=== PATIENT | male | born 1990 | race Caucasian/White ===

== ENCOUNTER 2017-12-07 04:51 | Day surgery (SDC) | payer BC ==
[2017-11-23 13:22] VITALS: BMI 27.3
[2017-12-07] MEDS ORDERED: SUCCINYLCHOLINE CHLORIDE 200 MG/10 ML VIAL ONE (07:27)
[2017-12-07] MEDS ORDERED: PROPOFOL 20 ML ONE ×2 (07:27)
[2017-12-07] MEDS ORDERED: MIDAZOLAM HCL 2 MG/2 ML SINGLE DOSE VIAL ONE (07:27)
[2017-12-07] MEDS ORDERED: LIDOCAINE HCL/PF 2% SDV 5ML VIAL ONE (07:30)
[2017-12-07] MEDS ORDERED: DEXAMETHASONE SOD PHOSPHATE 4 MG/1 ML VIAL ONE (07:30)
[2017-12-07] MEDS ORDERED: CLINDAMYCIN PHOSPHATE 600 MG/4 ML VIAL ONE (08:36)
[2017-12-07] MEDS ORDERED: BUPIVACAINE HCL/PF (5 MG/ML) 30 ML VIAL IJ ONE (08:40)
--- NOTE | 2017-12-07 09:08 | OP ---
Operative Note - Note: Operative Date: 12/07/17 Pre-Operative Diagnosis: left knee pain, MM tear Operation: left knee arthroscopy, partial medial meniscectomy, debridement chondroplasty Post-Operative Diagnosis: Same as Pre-op Surgeon: Sathya Hill Anesthesiologist/RECONCILIATION MACHINE OPERATOR: Tess Short Anesthesia: General, Local Specimens Removed: shavings Estimated Blood Loss (mls): 0 Blood Volume Replaced (mls): 0 Fluid Volume Replaced (mls): 500 Operative Report Dictated: Yes
--- NOTE | 2017-12-07 09:10 | HP ---
Satellite [facility] - Chief Complaint Chief Complaint: left knee pain History of Present Illness: left knee medial meniscus tear History Source: Patient Limitations to Obtaining History: No Limitations - Past Medical History Allergies/Adverse Reactions: Allergies Allergy/AdvReac Type Severity Reaction Status Date / Time Penicillins AdvReac Intermediate Rash Verified 12/07/17 07:11 - Current Medications Current Medications: Home Medications Medication Instructions Recorded NK [No Known Home Medication] 11/23/17 Satellite Physical Exam - Physical Examination Vital Signs: Vital Signs Period Temp Pulse Resp BP Sys/Bassett Pulse Ox Last 24 Hr 98.2 F 70 20 123/71 97 General Appearance: Well Nourished ENT: Clear Lung: Clear to auscultation Heart: Regular rate & rhythm Breasts: Soft Abdomen: Soft Extremities: No edema Satellite Impression/Plan - Impression/Plan Impression: left knee medial meniscus tear, OA Operative Procedure: left knee arthroscopy, partial medial meniscectomy, debridement chondroplasty Date to be Performed: 12/07/17
[2017-12-07] MEDS ORDERED: ONDANSETRON 4 MG/2 ML VIAL IVPUSH PRN (09:26)
[2017-12-07] MEDS ORDERED: KETOROLAC TROMETHAMINE 30 MG/1 ML VIAL IVPUSH ONE (09:27)
[2017-12-07] MEDS ORDERED: LACTATED RINGERS SOLUTION 1,000 ML IV SCH (09:30)
--- NOTE | 2017-12-07 11:56 | OP ---
DATE OF OPERATION: 12/07/2017 PREOPERATIVE DIAGNOSES: Left knee pain, medial meniscus tear, and osteoarthritis. POSTOPERATIVE DIAGNOSES: Left knee pain, medial meniscus tear, and osteoarthritis. PROCEDURES: Left knee arthroscopy, partial medial meniscectomy, and debridement chondroplasty. SURGEON: Sathya Stewart MD ASSISTANTS: None. ANESTHESIOLOGIST: , TIME CLOCK MECHANIC. ANESTHESIA: LMA anesthesia; intra-articular injection of 20 mL of 0.5% Marcaine. DRAINS: None. COMPLICATIONS: None. SPECIMENS: Arthroscopic shavings. BLOOD LOSS: None. BLOOD GIVEN: None. FLUID REPLACEMENT: 500 mL. INDICATION FOR PROCEDURE: This patient is a 27-year-old male with a preoperative diagnosis of recurrent left knee pain. He is status post previous medial meniscectomy. He has acute on chronic pain and his preoperative diagnosis of a recurrent medial meniscus tear and mild osteoarthritis. After understanding the potential risks, complications, alternatives, and benefits of surgical versus nonsurgical treatment, the patient elected to undergo this procedure. Specifically, he understands he will not get complete relief of his symptoms. If he continues to have pain, it is because of his osteoarthritis. PROCEDURE: The patient was brought to the operating room. Peripheral IV placed. IV sedation given. Clindamycin of 600 mg was given. LMA anesthesia was induced. Ample Webril was placed around the left thigh. He was placed into the C-clamp leg reece with a Styrofoam ring. The left lower extremity was prepped and draped in sterile fashion, elevated, exsanguinated with an Esmarch bandage, and tourniquet inflated to 275 mm of mercury. A superior medial outflow portal was established. A lateral portal was established. Under direct visualization using a spinal needle, a medial portal was established and a diagnostic arthroscopy was performed. In the medial compartment, the patient was seen to have a degenerative-type tear with a radial component of the body of the medial meniscus. This was debrided with a curved shaver. Photographs were taken before and after. Patient did have grade 1 to grade 2 changes of the medial tibial plateau, grade 1 changes of the medial femoral condyle. These were gently debrided, as well. Some small pieces of cartilaginous debris were removed. The intercondylar notch looked good, although the ACL looked a little degenerative. I would say that there were small partial tears of approximately 5% of the total diameter of the ACL. Next, our attention turned to the lateral compartment. This looked good. The patient had grade 1 change of the lateral tibial plateau, but otherwise looked quite good. The patellofemoral joint did show some areas of grade 2 almost grade 3 of the femoral trochlea. There was synovitis. I debrided both the synovitis and did a gentle debridement chondroplasty of the femoral trochlear chondromalacia. The area was copiously irrigated and washed out. Again, I looked at all the different structures. There was no other pathology. All instrumentation and debris was removed. The arthroscopy portals were closed with 3-0 nylon sutures. Next, 20 mL of 0.5% Marcaine was introduced into the joint. The area was then washed and dried, covered with Xeroform gauze, 4 x 4, Webril and an Arthur bandage. The tourniquet was taken down after a total tourniquet time of 20 minutes. There were no complications during the case. The patient tolerated the procedure quite well and was brought to the ambulatory recovery room in stable condition. SATHYA STEWART M.D. [id number]
[2017-12-07 14:19] VITALS: BP 120/68; PULSE 58; TEMP 97.6
--- NOTE | 2017-12-08 16:23 | PATH ---
Surgical Pathology Report Patient Name: MANAN HANKINS Med. Rec. #: [id number] /Age/Gender: 1990 (Age: 27) / M Account: [id number] Location: [facility] SURGICAL Taken: 12/07/2017 Received: 12/07/2017 Reported: 12/08/2017 Physicians: Sathya Hill M.D. Specimen(s) Received RIGHT KNEE SHAVINGS Clinical History Right knee tear Final Diagnosis RIGHT KNEE SHAVINGS: CARTILAGINOUS AND FIBROSYNOVIAL TISSUE WITH DEGENERATIVE CHANGE. Electronically Signed Marisa Hopson M.D. Gross Description Received in formalin labeled "right knee shavings," is a 1.5 x 1.0 x 0.3 cm aggregate of robins-yellow soft tissue fragments. Receptionist tissue submitted in one cassette. YVONNE/12/07/2017 brooks/12/07/2017
== END 2017-12-07 12:30 | disposition home or self-care (01) ==
LOC: JASU-SURG 04:51
PROVIDERS: ATTEND Orthopaedic Surgery
PROC: 0SBD4ZZ Excision of Left Knee Joint, Percutaneous Endoscopic Approach (ICD-10-PCS; principal; 2017-12-07 08:00)
DX: S83.242A Other tear of medial meniscus, current injury, left knee, initial encounter (principal); X58.XXXA Exposure to other specified factors, initial encounter; Y93.9 Activity, unspecified; Y92.9 Unspecified place or not applicable; Y99.9 Unspecified external cause status

== ENCOUNTER 2018-07-17 14:49 | Emergency (ER) | payer OTHER, BC | END 2018-07-17 16:30 | disposition home or self-care (01) | LOC: FER 14:49 ==

== ENCOUNTER 2018-08-09 05:54 | Day surgery (SDC) | payer BC ==
[2018-08-08 08:48] VITALS: BMI 25.4
[2018-08-09] MEDS ORDERED: BUPIVACAINE HCL/PF 0.5% (5MG/ML) 10 ML VIAL ONE (10:30)
--- NOTE | 2018-08-09 10:37 | HP ---
Satellite [facility] - Chief Complaint Chief Complaint: left knee pain - Past Medical History Allergies/Adverse Reactions: Allergies Allergy/AdvReac Type Severity Reaction Status Date / Time Penicillins AdvReac Intermediate Rash Verified 08/09/18 09:51 - Current Medications Current Medications: Home Medications Medication Instructions Recorded Oxycodone HCl/Acetaminophen 1 tab PO Q6H #20 tablet MDD 4 08/09/18 [Percocet 5-325 mg Tablet] Satellite Physical Exam - Physical Examination Vital Signs: Vital Signs Period Temp Pulse Resp BP Sys/Bassett Pulse Ox Last 24 Hr 98.2 F 60 16 123/71 97 General Appearance: Well Nourished, Well Developed, Alert & Oriented x3 ENT: Clear Lung: Normal air movement Heart: Regular rate & rhythm Extremities: Other (left knee- +swelling, + ttp, decr rom, + mcmurrays, MRI + mt ) Neurological: Intact, Alert, Oriented Satellite Impression/Plan - Impression/Plan Impression: left knee internal derangement Operative Procedure: left knee arthroscopy Date to be Performed: 08/09/18
[2018-08-09] MEDS ORDERED: MIDAZOLAM HCL 2 MG/2 ML SINGLE DOSE VIAL ONE ×2 (11:26)
[2018-08-09] MEDS ORDERED: PROPOFOL 20 ML ONE (11:31)
[2018-08-09] MEDS ORDERED: SUCCINYLCHOLINE CHLORIDE 200 MG/10 ML SYRINGE ONE (11:32)
[2018-08-09] MEDS ORDERED: ceFAZolin SODIUM 1 GM VIAL IVPB ONE (11:35)
[2018-08-09] MEDS ORDERED: BUPIVACAINE HCL/PF (5 MG/ML) 30 ML VIAL IJ ONE (12:15)
--- NOTE | 2018-08-09 12:35 | OP ---
Operative Note - Note: Operative Date: 08/09/18 Pre-Operative Diagnosis: left knee lateral meniscus tear, OA Operation: left knee arthroscopy, partial lateral and medial meniscectomy, debridement chondroplasty Post-Operative Diagnosis: Same as Pre-op Surgeon: Sathya Hill Anesthesiologist/GLUING MACHINE FEEDER: Nadiya Yan MD Anesthesia: General, Local Specimens Removed: shavings Estimated Blood Loss (mls): 0 Drains, Volume Out (mls): 0 Blood Volume Replaced (mls): 0 Fluid Volume Replaced (mls): 500 Operative Report Dictated: Yes
[2018-08-09] MEDS ORDERED: PROMETHAZINE HCL 25 MG/1 ML VIAL IVPB PRN (12:42)
[2018-08-09] MEDS ORDERED: ONDANSETRON 4 MG/2 ML VIAL IVPUSH PRN (12:42)
[2018-08-09] MEDS ORDERED: oxyCODONE HCL 5 MG TABLET PO PRN (12:42)
[2018-08-09] MEDS ORDERED: LACTATED RINGERS SOLUTION 1,000 ML IV SCH (12:45)
--- NOTE | 2018-08-09 13:32 | OP ---
DATE OF OPERATION: 08/09/2018 PREOPERATIVE DIAGNOSIS: Left knee lateral meniscus tear, osteoarthritis. POSTOPERATIVE DIAGNOSIS: Left knee lateral meniscus tear, osteoarthritis, plus small medial meniscus tear. DRAINS: None. COMPLICATIONS: None. PROCEDURE: Left knee arthroscopy, partial medial and lateral meniscectomy, and debridement chondroplasty. SURGEON: Sathya Hill MD [employer] SCHO[employer] DEAN: None. ANESTHESIA: Nadiya Yan MD: LM anesthesia, local injection of 20 mL 0.5% Marcaine. BLOOD LOSS: None. BLOOD GIVEN: None. FLUID REPLACEMENT: 500 mL. This patient is a 28-year-old male with a preoperative diagnosis of recurrent left knee pain and a large lateral meniscus tear as well as osteoarthritis. After understanding the potential risks, complications, alternatives, and benefits to surgery versus nonsurgical treatment, the patient elected to undergo this procedure. The patient was brought to the operating room, peripheral IV placed, IV sedation given, LM anesthesia was induced. He was placed supine, leg reece, with ample padding throughout. The left lower extremity was prepped and draped in sterile fashion, elevated, exsanguinated with an Esmarch bandage, tourniquet inflated to 250 mmHg. A superior medial outflow portal was established. A lateral portal was established. A diagnostic arthroscopy was performed. A medial portal was established under direct visualization using a spinal needle. First of all, in the medial compartment, the patient had a small radial tear at the junction of the body and posterior horn and medial meniscus. This was debrided with a curved shaver. There was very small mild grade 1 chondromalacia of the medial tibial plateau but otherwise overall there was no osteoarthritis in the medial compartment. The intercondylar notch over the anterior cruciate ligament was a little frayed. A small debridement was performed. I put a probe behind it. It was a little bit loose. Overall it looked okay. It was intact but not great. The lateral compartment showed a very large bucket-handle tear of the posterior horn and body of the lateral meniscus. This was brought forward with a probe, photographs taken. A straight basket forceps and a curved shaver were used to remove the unstable flap. Once this as done, I probed what was left. There still were some gallegos fibers intact but a vast majority, probably 85% of the posterior horn and body of the lateral meniscus were removed. That portion of the anterior horn was debrided but most of that was left in place. The patient had large areas of grade 2/grade 3 chondromalacia of the lateral tibial plateau and areas of grade 3 chondromalacia of the lateral femoral condyle. This was debrided with a curved shaver. Once the debridement chondroplasty was completed, the patellofemoral joint was directly visualized and it actually looked quite good. There were small areas of grooving in the femoral trochlea but overall it looked quite good and nothing needed to be done. The area was copiously irrigated and washed out. All instrumentation and excess saline were removed. The arthroscopy portals were closed with 3-0 nylon sutures. Then 20 mL of 0.5% Marcaine was introduced into the joint. The area was then washed and dried, covered with Xeroform, 4 x 4, Webril, and an Arthur bandage. Tourniquet was taken down after a total tourniquet time of 25 minutes. There were no complications during the case. The patient tolerated the procedure quite well, was brought to the ambulatory recovery room in stable condition. Sherly [id number]
[2018-08-09 14:36] VITALS: BP 123/75; PULSE 60; TEMP 97.9
--- NOTE | 2018-08-11 17:05 | PATH ---
Surgical Pathology Report Patient Name: MANAN HANKINS Med. Rec. #: [id number] /Age/Gender: 1990 (Age: 28) / M Account: [id number] Location: [facility] SURGICAL Taken: 08/09/2018 Received: 08/09/2018 Reported: 08/11/2018 Physicians: Sathya Hill M.D. Specimen(s) Received LEFT KNEE SHAVINGS Clinical History Left knee tear Final Diagnosis KNEE SHAVINGS, LEFT, ARTHROSCOPY: FRAGMENTS OF DENSE FIBROCONNECTIVE TISSUE, ADIPOSE TISSUE, AND SYNOVAL TISSUE WITH EMBEDDED POLARIZING FOREIGN BODY MATERIAL WITH ASSOCIATED GIANT CELL REACTION. Comment: Suggest clinical correlation. Electronically Signed Janay Monteiro M.D. Gross Description Received in formalin, labeled "left knee shaving," is a 3.5 x 3.0 x 0.3 cm. aggregate of robins-yellow soft tissue fragments. A event sales representative portion is submitted in one cassette. /08/09/2018 located within [facility]08/09/2018
== END 2018-08-09 14:20 | disposition home or self-care (01) ==
LOC: JASU-SURG 05:54
PROVIDERS: ATTEND Orthopaedic Surgery
PROC: 0SBD4ZZ Excision of Left Knee Joint, Percutaneous Endoscopic Approach (ICD-10-PCS; 2018-08-09)
PROC: 0SBD4ZZ Excision of Left Knee Joint, Percutaneous Endoscopic Approach (ICD-10-PCS; principal; 2018-08-09 11:00)
DX: S83.282A Other tear of lateral meniscus, current injury, left knee, initial encounter (principal); M17.12 Unilateral primary osteoarthritis, left knee; S83.242A Other tear of medial meniscus, current injury, left knee, initial encounter; X58.XXXA Exposure to other specified factors, initial encounter; Y93.9 Activity, unspecified; Y92.9 Unspecified place or not applicable; Y99.9 Unspecified external cause status
CPT/HCPCS: 88304-TC; 94760

== ENCOUNTER 2019-11-13 18:15 | Emergency (ER) | payer BC ==
[2019-11-13 18:29] VITALS: BP 134/88; TEMP 98.4; BMI 25.5
--- OUTSIDE RECORDS SUMMARY | 2019-11-13 18:48 | XMS ---
:1990 Author Organization [facility] Support Name Relationship Address Phone VERI Unavailable [address] [facility] [place] [address] ANNY HANKINS [address] [place] [address] Re-disclosure Warning The records that you are about to access may contain information from federally- assisted alcohol or drug abuse programs. If such information is present, then the following federally mandated warning applies: This information has been disclosed to you from records protected by federal confidentiality rules (42 CFR part 2). The federal rules prohibit you from making any further disclosure of this information unless further disclosure is expressly permitted by the written consent of the person to whom it pertains or as otherwise permitted by 42 CFR part 2. A general authorization for the release of medical or other information is NOT sufficient for this purpose. The Federal rules restrict any use of the information to criminally investigate or prosecute any alcohol or drug abuse patient.The records that you are about to access may contain highly sensitive health information, the redisclosure of which is protected by Article 27-F of the [facility] Public Health law. If you continue you may haveaccess to information: Regarding HIV / AIDS; Provided by facilities licensed or operated by the [facility] Office of Mental Health; or Provided by the [facility] Office for People With Developmental Disabilities. If such information is present, then the following [facility] mandated warning applies: This information has been disclosed to you from confidential records which are protected by state law. State law prohibits you from making any further disclosure of this information without the specific written consent of the person to whom it pertains, or as otherwise permitted by law. Any unauthorized further disclosure in violation of state law may result in a fine or skilled nursing sentence or both. A general authorization for the release of medical or other information is NOT sufficient authorization for further disclosure. Insurance Providers Payer name Policy type Policy ID Covered Covered republican's Policy P lori / Coverage republican ID relationship to Mireles Inf ormation type mireles BC OUT OF [id number] SP [id number] [facility] SELF PAY [employer]URANCE PENDING WC/NF [id number] SP [id number] 100 ONLY Results ID Date Data Source [id number] 06/13/2019 12:00:00 AM EDT [facility] Name Value Range Interpretation Code Description Data Stephania rce(s) Supporting Document(s ) 2019-nCoV [facility] RNA XXX LUZ MARINA+probe- Imp This lab was ordered by [facility] DE JESUS and reported by [employer] Procedure
[2019-11-13 19:04] VITALS: PULSE 104
--- NOTE | 2019-11-13 19:42 | PDOC ---
Attending Attestation - Resident Resident Name: Yulissa Alvarez - ED Attending Attestation I have performed the following: I have examined & evaluated the patient, The case was reviewed & discussed with the resident, I agree w/resident's findings & plan - HPI HPI: 11/13/19 21:39 see resident hpi - Physicial Exam PE: 11/13/19 21:39 see resident exam - Medical Decision Making 11/13/19 21:39 29-year-old male with body aches and fever, rapid flu negative at an outpatient facility here for concerns of code infection and further evaluation Chest x-ray shows no obvious infiltrate Patient was tachycardic on arrival, d-dimer is within normal limits COVID testing is pending Plan for DC home with isolation precautions pending results Discharge - Discharge Information Problems reviewed: Yes Clinical Impression/Diagnosis: Bronchitis, Suspected COVID-19 virus infection, Malaise - Follow up/Referral Referrals: Kristie Lovell MD [Primary Care Provider] - - Patient Discharge Instructions - Post Discharge Activity
[2019-11-13] MEDS ORDERED: ALBUTEROL SO4 HFA INHALER IH ONE ×2 (19:46→19:55)
--- NOTE | 2019-11-13 20:14 | PDOC ---
History of Present Illness - General Chief Complaint: Cold Symptoms Stated Complaint: CHEST PAINS Time Seen by Provider: 11/13/19 19:42 History Source: Patient Exam Limitations: No Limitations - History of Present Illness Initial Comments: 11/13/19 20:14 HPI: This is a 29 y/o male with no PMH presenting to the ED due to generalized fatigue and SOB that began this afternoon while he was at work. He then left work and started having chest pain, which he described as non-radiating central pressure worse with deep breaths, worsening SOB with exertion, chills, myalgias and a headache. He took his temperature at home which he says was 103.3 and then took tylenol. When his symptoms continued, he went to urgent care to be tested for COVID and the flu. The rapid flu came back negative, COVID is pending. He was afebrile at the time. He is currently still complaining of mild SOB, improved chest pain, headache, chills, nausea, and myalgias. Denies known COVID contacts [place]. He was wearing a mask at the time. ROS: GENERAL/CONSTITUTIONAL: Yes chills, generalized weakness HEENT: No change in vision. No sore throat. CARDIOVASCULAR: Yes chest pressure, No palpitations or peripheral edema RESPIRATORY: Yes SOB and dyspnea with exertion, Denied wheezing, or hemoptysis. GASTROINTESTINAL: No abdominal pain, Yes nausea with one episode of NMNB emesis at urgent care. Denied diarrhea GENITOURINARY: No dysuria, frequency, MUSCULOSKELETAL: Yes diffuse myalgias SKIN: No rash or hives NEUROLOGIC: Yes headache No vertigo, focal weakness, loss of consciousness, or change in strength/sensation. ENDOCRINE: No increased thirst. No unexplained weight loss. HEMATOLOGIC/LYMPHATIC: No anemia, easy bleeding, or history of blood clots. PMH: Denied PSx: Denied Social Hx: Occasional etoh, occasional marijuana and vape Meds: See nurse note Allergies: See nurse note PE: GENERAL: Awake, alert, and fully oriented, in no acute distress. Patient is non- toxic in appearance. Speaking in full sentences, no increased work of breathing. HEENT: Normocephalic, atraumatic. PERRLA, EOMI NECK: Normal ROM and supple. CARDIOVASCULAR: Regular rate and rhythm, normal S1 and S2 PULMONARY: No respiratory distress. Breath sounds equal, clear to auscultation bilaterally. No wheezes, rales or rhonchi. ABDOMEN: Soft, nontender EXTREMITIES: Normal range of motion, no edema or erythema, no calf tenderness. NEUROLOGICAL: Cranial nerves II through XII grossly intact. Normal speech, normal gait SKIN: Warm, Dry, normal turgor MDM: 11/13/19 20:48 This is a 29 y/o male with no PMH presenting to the ED due to generalized fatigue and SOB that began this afternoon while he was at work. - Tachycardic on admission - Sudden onset chills, headache, body aches. - Reports a fever of 103.3 at home - Doesnt know of known covid contacts but [place] on [place] last week - Patient is non-toxic in appearance. No respiratory distress. - Saturating well on RA - Possible COVID patient vs PE Plan: - EKG, cardiac panel - d-dimer - CBC, CMP - CXR - Albuterol 11/13/19 20:57 EKG: No ST elevations T wave inversions Vent rate 92, Sinus rhythm CXR: No acute chest pathology Labs notable for: WBC 11.7 CMP wnl Dimer negative Troponin negative 11/13/19 22:30 - Patient repeat vitals P 92, 99% RA, 99% ambulating - Suspect COVID - Stable to d/c with return precautions, isolation precautions and follow-up Past History - Medical History Allergies/Adverse Reactions: Allergies Allergy/AdvReac Type Severity Reaction Status Date / Time Penicillins AdvReac Intermediate Rash Verified 08/09/18 09:51 Home Medications: Ambulatory Orders Oxycodone HCl/Acetaminophen [Percocet 5-325 mg Tablet] 1 tab PO Q6H #20 tablet MDD 4 08/09/18 Anemia: No Asthma: Yes (as a child) Cancer: No Cardiac Disorders: No CVA: No COPD: No CHF: No Dementia: No Diabetes: No GI Disorders: No Disorders: No HTN: No Hypercholesterolemia: No Liver Disease: No Seizures: No Thyroid Disease: No - Surgical History Abdominal Surgery: Yes (HIATAL HERNIA) Appendectomy: No Cardiac Surgery: No Cholecystectomy: No Lung Surgery: No Neurologic Surgery: No Orthopedic Surgery: Yes (left elbow decompression, left ACL, left knee) - Immunization History Immunization Up to Date: Yes - Psycho-Social/Smoking History Smoking History: Never smoked Have you smoked in the past 12 months: No Number of Cigarettes Smoked Daily: 0 If you are a former smoker, when did you quit?: 2018 'Breaking Loose' booklet given: 11/23/17 - Substance Abuse Hx (Audit-C & DAST Scrn) How often the patient has a drink containing alcohol: Never Score: In Men: 4 or > Positive; In Women: 3 or > Positive: 0 Screen Result (Pos requires Nsg. Audit-10AR): Negative In the last yr the pt used illegal drug/Rx for NonMed reason: No Score: Yes response is considered Positive: 0 Screen Result (Positive result requires Nsg. DAST-10): Negative *Physical Exam - Vital Signs Last Vital Signs Temp Pulse Resp BP Pulse Ox 98.4 F 104 H 20 134/88 96 11/13/19 18:24 11/13/19 18:50 11/13/19 18:24 11/13/19 18:24 11/13/19 18:50 ED Treatment Course - LABORATORY CBC & Chemistry Diagram: 11/13/19 20:59 11/13/19 20:59 - Medications Given in the ED: ED Medications Discontinued Medications Generic Name Dose Route Start Last Admin Trade Name Freq PRN Reason Stop Dose Admin Albuterol Sulfate 2 puff 11/13/19 19:46 11/13/19 20:05 Ventolin Hfa Inhaler - IH 11/13/19 19:47 2 puff ONCE ONE Administration Discharge - Discharge Information Problems reviewed: Yes Clinical Impression/Diagnosis: Bronchitis, Suspected COVID-19 virus infection, Malaise Condition: Stable Disposition: HOME - Follow up/Referral Referrals: Kristie Lovell MD [Primary Care Provider] - - Patient Discharge Instructions Patient Printed Discharge Instructions: How to Avoid a Cold or Flu, DI for Acute Bronchitis, DI for Viral Upper Respiratory Infection -- Adult, [facility]- Coronavirus Instructions, [facility] COVID-19 Isolation Protocol Additional Instructions: You were seen in the emergency department for the evaluation of your body aches and fever. You possibly have COVID-19, which is caused by SARS-COV-2. Please follow the discharge instructions listed about the coronavirus. It is important that you isolate yourself for 14 days away from others. Please have a mask on at all times. Please return to the emergency department if you ave worsening symptoms or new concerning symptoms such as shortness of breath, inability to breathe, confusion, chest pain. Please follow up with your primary medical doctor 2 weeks after discharge. Thank you. - Post Discharge Activity Work/Back to School Note: Back to Work
--- NOTE | 2019-11-13 20:18 | PDOC ---
*Physical Exam - Vital Signs Last Vital Signs Temp Pulse Resp BP Pulse Ox 98.4 F 104 H 20 134/88 96 11/13/19 18:24 11/13/19 18:50 11/13/19 18:24 11/13/19 18:24 11/13/19 18:50 ED Treatment Course - LABORATORY CBC & Chemistry Diagram: 11/13/19 20:59 11/13/19 20:59 - RADIOLOGY Radiology Studies Ordered: Category Date Time Status CXRPORT [CHEST X-RAY PORTABLE*] [RAD] Stat Radiology 11/13/19 19:38 Ordered - Medications Given in the ED: ED Medications Discontinued Medications Generic Name Dose Route Start Last Admin Trade Name Freq PRN Reason Stop Dose Admin Albuterol Sulfate 2 puff 11/13/19 19:46 11/13/19 20:05 Ventolin Hfa Inhaler - IH 11/13/19 19:47 2 puff ONCE ONE Administration Medical Decision Making - Medical Decision Making 11/13/19 22:23 92 bpm was the heart rate at the time of discharge. At rest, the patient had O2 via pulse oximetry of 99% at rest and 99% with ambulation. Patient states they feel well for discharge and will self isolate at home. Patient was given return precautions and covid-19 instructions. Discharge - Discharge Information Problems reviewed: Yes Clinical Impression/Diagnosis: Bronchitis, Suspected COVID-19 virus infection, Malaise Disposition: HOME - Admission No - Follow up/Referral Referrals: Kristie Lovell MD [Primary Care Provider] - - Patient Discharge Instructions Patient Printed Discharge Instructions: How to Avoid a Cold or Flu, DI for Acute Bronchitis, DI for Viral Upper Respiratory Infection -- Adult, [facility]- Coronavirus Instructions, [facility] COVID-19 Isolation Protocol Additional Instructions: You were seen in the emergency department for the evaluation of your body aches and fever. You possibly have COVID-19, which is caused by SARS-COV-2. Please follow the discharge instructions listed about the coronavirus. It is important that you isolate yourself for 14 days away from others. Please have a mask on at all times. Please return to the emergency department if you ave worsening symptoms or new concerning symptoms such as shortness of breath, inability to breathe, confusion, chest pain. Please follow up with your primary medical doctor 2 weeks after discharge. Thank you. - Post Discharge Activity Work/Back to School Note: Back to Work
[2019-11-13 21:15] LABS: BASO % 0.5 % (0-2.0); EOS % 0.5 % (0-4.5); HEMOGLOBIN 15.4 GM/dL (11.7-16.9); LYMPH % 8.8 % (8-40); MCH 31.5 pg (25.7-33.7); MCHC 34.3 g/dl (32.0-35.9); MEAN CELL VOLUME 91.9 fl (80-96); MEAN PLT VOLUME 6.9 fl (7.5-11.1); MONO % 8.2 % (3.8-10.2); PLATELET COUNT 239 K/MM3 (134-434); RDW 12.3 % (11.9-15.9); WHITE BLOOD COUNT 11.7 K/mm3 (4.0-10.0)
[2019-11-13 21:24] LABS: INR 1.03 (0.83-1.09); PROTHROMBIN TIME (PATIENT) 12.2 SEC (9.7-13.0)
[2019-11-13 21:46] LABS: ALBUMIN 4.4 g/dl (3.4-5.0); ALK PHOS 44 U/L (45-117); ANION GAP 7 MMOL/L (8-16); BILIRUBIN,TOTAL 0.9 mg/dL (0.2-1); BLOOD UREA NITROGEN 11.2 mg/dL (7-18); CALCIUM 9.4 mg/dL (8.5-10.1); CHLORIDE 104 mmol/L (98-107); CO2 27 mmol/L (21-32); CREATININE 0.8 mg/dL (0.55-1.3); GLUCOSE,RANDOM 89 mg/dL (74-106); POTASSIUM 4.6 mmol/L (3.5-5.1); SGOT/AST 18 U/L (15-37); SGPT/ALT 38 U/L (13-61); SODIUM 138 mmol/L (136-145); TOT PROT 7.8 g/dl (6.4-8.2)
--- NOTE | 2019-11-14 08:47 | EKG ---
Test Reason : Blood Pressure : / mmHG Vent. Rate : 091 BPM Atrial Rate : 091 BPM P-R Int : 160 ms QRS Dur : 094 ms QT Int : 362 ms P-R-T Axes : 035 104 068 degrees QTc Int : 445 ms NORMAL SINUS RHYTHM RIGHTWARD AXIS BORDERLINE ECG NO PREVIOUS ECGS AVAILABLE Confirmed by Jason Jesus MD ([id number]) on 11/14/2019 8:46:38 AM Referred By: Confirmed By:Jason Jesus MD
--- NOTE | 2019-11-15 13:25 | EKG ---
Test Reason : Blood Pressure : / mmHG Vent. Rate : 097 BPM Atrial Rate : 097 BPM P-R Int : 150 ms QRS Dur : 094 ms QT Int : 346 ms P-R-T Axes : 036 102 066 degrees QTc Int : 439 ms NORMAL SINUS RHYTHM RIGHTWARD AXIS BORDERLINE ECG WHEN COMPARED WITH ECG OF 13-NOV-2019 20:24, NO SIGNIFICANT CHANGE WAS FOUND Confirmed by SARAH LYNN MD ([id number]) on 11/15/2019 1:24:50 PM Referred By: Confirmed By:SARAH LYNN MD
== END 2019-11-13 22:41 | disposition home or self-care (01) ==
LOC: JER 18:15
DX: J20.9 Acute bronchitis, unspecified (principal)
CPT/HCPCS: 36415; 71045-TC-FY; 80053; 82550; 84484; 85025; 85379; 85610; 93005; 93010; 99285-25

== ENCOUNTER 2021-02-22 09:40 | Emergency (ER) | payer BC ==
[2021-02-22 09:47] VITALS: BP 135/90; PULSE 67; TEMP 98; BMI 24.3
[2021-02-22] MEDS ORDERED: SODIUM CHLORIDE 0.9% 500 ML INFUS.BAG IV ONE (10:44)
[2021-02-22] MEDS ORDERED: KETOROLAC TROMETHAMINE 15 MG/ML VIAL IVPUSH ONE (10:44)
[2021-02-22] MEDS ORDERED: KETOROLAC TROMETHAMINE 15 MG/ML VIAL ONE (10:47)
[2021-02-22 11:44] LABS: PH,URINE 7.5 (5.0-8.0); URINE APPEARANCE CLEAR; URINE BILIRUBIN NEGATIVE (NEGATIVE); URINE COLOR YELLOW; URINE GLUCOSE (UA) NEGATIVE (NEGATIVE); URINE KETONE NEGATIVE (NEGATIVE); URINE LEUK ESTERASE NEGATIVE (NEGATIVE); URINE NITRITE NEGATIVE (NEGATIVE); URINE PROTEIN NEGATIVE (NEGATIVE)
[2021-02-22 12:12] LABS: BASO % 1.1 % (0-2.0); EOS % 2.3 % (0-4.5); HEMATOCRIT 41.7 % (35.4-49); HEMOGLOBIN 14.2 GM/dL (11.7-16.9); LYMPH % 29.4 % (8-40); MCH 30.7 pg (25.7-33.7); MEAN CELL VOLUME 90.4 fl (80-96); MONO % 12.4 % (3.8-10.2); NEUT % 54.8 % (42.8-82.8); PLATELET COUNT 252 10^3/uL (134-434); RBC 4.61 M/mm3 (4.00-5.60); RDW 12.3 % (11.9-15.9); WHITE BLOOD COUNT 5.5 K/mm3 (4.0-10.0)
[2021-02-22 12:41] LABS: CALCIUM 9.1 mg/dL (8.5-10.1)
[2021-02-22] MEDS ORDERED: morphine CARPU-JECT 4 MG/1 ML DISP.SYRIN IVPUSH ONE (12:41)
[2021-02-22 12:42] LABS: ALBUMIN 3.8 g/dl (3.4-5.0); BLOOD UREA NITROGEN 14.3 mg/dL (7-18)
[2021-02-22 12:44] LABS: CREATININE 0.7 mg/dL (0.55-1.3)
[2021-02-22 12:46] LABS: BILIRUBIN,TOTAL 0.5 mg/dL (0.2-1)
[2021-02-22] MEDS ORDERED: morphine SULFATE 4 MG/ML VIAL ONE (13:23)
== END 2021-02-22 14:36 | disposition home or self-care (01) ==
LOC: JER 09:40
PROC: 3E033GC Introduction of Other Therapeutic Substance into Peripheral Vein, Percutaneous Approach (ICD-10-PCS; principal; 2021-02-22)
DX: K57.92 Diverticulitis of intestine, part unspecified, without perforation or abscess without bleeding (principal)
CPT/HCPCS: 36415; 74160-TC; 80053; 81003; 83690; 85025; 87491; 87591; 99285-25; Q9967